=== PATIENT | female | born 1930 | race Caucasian/White ===

== ENCOUNTER → 2016-10-21 | Outpatient (CLI) | payer MEDICARE, OTHER ==
[~2016-10-21] MED LIST: ASPI81 PO; LEVO.05 PO; LIVA2TAB PO; MACR100C PO; VITAMIN
[2016-10-21 09:17] LABS: HEMATOCRIT 37.4 % (35.0-46.0); MEAN CELL VOLUME 86.6 FL (80.0-100.0); MEAN CORPUSCULAR HEMOGLOBIN 29.5 PG (27.0-34.0); PLATELET COUNT 207 TH/MM3 (150-450); RED BLOOD COUNT 4.32 MIL/MM3 (4.00-5.30); RED CELL DISTRIBUTION WIDTH 13.7 % (11.6-17.2); REVIEW FLAG FINAL
[2016-10-21 09:34] LABS: BICARBONATE 27.7 MEQ/L (21.0-32.0); HDL CHOLESTEROL 71.5 MG/DL (40.0-60.0); POTASSIUM 4.2 MEQ/L (3.5-5.1)
== END ==
LOC: CLAB 08:44
PROVIDERS: ATTEND General Practice
DX: E78.00 Pure hypercholesterolemia, unspecified (principal); N64.9 Disorder of breast, unspecified; Z79.899 Other long term (current) drug therapy
CPT/HCPCS: 36415; 80048; 80061; 85027

== ENCOUNTER → 2016-12-16 | Outpatient (CLI) | payer MEDICARE, OTHER ==
[2016-12-16 13:40] LABS: BLOOD, URINE NEG (NEG); COMMENT (UR) CULT NOT INDICATED; CULTURE IF INDICATED CULT NOT INDICATED; GLUCOSE,URINE NEG (NEG); KETONE, URINE 10 mg/dL (NEG); MUCUS URINE FEW /lpf (OCC); NITRITE,URINE NEG (NEG); SQUAMOUS EPITHELIAL CELL URINE 1 /hpf (0-5); TRANSITIONAL EPI CELLS, URINE <1 /hpf; URINE COLOR YELLOW (YELLW/STRAW)
== END ==
LOC: CLAB 12:54
PROVIDERS: ATTEND General Practice
DX: R35.0 Frequency of micturition (principal)
CPT/HCPCS: 81001

== ENCOUNTER → 2017-02-15 | Outpatient (CLI) | payer MEDICARE, OTHER ==
[2017-02-15 09:11] LABS: ANION GAP 7 MEQ/L (5-15); AST (GOT) 16 U/L (15-37); BICARBONATE 28.2 MEQ/L (21.0-32.0); BLOOD UREA NITROGEN 14 MG/DL (7-18); CHLORIDE 103 MEQ/L (98-107); GLOMERULAR FILTRATION RATE 71 ML/MIN (>89); GLUCOSE,FASTING 89 MG/DL (74-99); SODIUM (NA) 138 MEQ/L (136-145)
[2017-02-15 09:12] LABS: ALT (GPT) 21 U/L (10-53)
[2017-02-15 09:21] LABS: ALKALINE PHOSPHATASE 97 U/L (45-117); FREE T4 1.07 NG/DL (0.76-1.46); HDL CHOLESTEROL 68.4 MG/DL (40.0-60.0); LDL CHOLESTEROL 88 MG/DL (0-99); TOTAL BILIRUBIN ADULT 0.7 MG/DL (0.2-1.0)
[2017-02-15 09:24] LABS: BLOOD, URINE NEG (NEG); GLUCOSE,URINE NEG (NEG); KETONE, URINE NEG (NEG); NITRITE,URINE NEG (NEG); URINE COLOR YELLOW (YELLW/STRAW)
[2017-02-15 10:19] LABS: BACTERIA, URINE MANY /hpf; RBC, URINE 0-3 /hpf (0-3)
[2017-02-15 10:20] LABS: COMMENT (UR) CULTURE INDICATED; CULTURE IF INDICATED CULTURE INDICATED
[2017-02-15 11:58] LABS: MICRO ALBUMIN RANDOM URINE RAW 18.6 MG/L (0.0-30.0)
== END ==
LOC: CLAB 08:08
PROVIDERS: ATTEND General Practice
DX: E03.9 Hypothyroidism, unspecified (principal); E78.00 Pure hypercholesterolemia, unspecified; N30.00 Acute cystitis without hematuria; E55.9 Vitamin D deficiency, unspecified; Z79.899 Other long term (current) drug therapy
CPT/HCPCS: 36415; 80053; 80061; 81001; 82043; 82306; 84439; 84443; 87077; 87086

== ENCOUNTER → 2017-08-02 | Outpatient (CLI) | payer MEDICARE, OTHER ==
[~2017-08-02] MED LIST changes: +ASPI81CH6 CHEW; +DIPH2.5T14 PO; +KLORCONEF PO; +LEVO50TA4 PO
[2017-08-02 12:36] LABS: BACTERIA, URINE FEW /hpf; BLOOD, URINE NEG (NEG); COMMENT (UR) CULTURE INDICATED; CULTURE IF INDICATED CULTURE INDICATED; GLUCOSE,URINE NEG (NEG); KETONE, URINE NEG (NEG); MUCUS URINE FEW /lpf (OCC); NITRITE,URINE NEG (NEG); URINE COLOR LIGHT-YELLOW (YELLW/STRAW)
== END ==
LOC: CLAB 11:10
PROVIDERS: ATTEND General Practice
DX: R35.0 Frequency of micturition (principal); N39.0 Urinary tract infection, site not specified; B95.2 Enterococcus as the cause of diseases classified elsewhere
CPT/HCPCS: 81001; 87077; 87086; 87186

== ENCOUNTER 2017-08-09 16:47 | Emergency (ER) | payer MEDICARE, OTHER ==
[~2017-08-09 16:47] MED LIST changes: -ASPI81CH6 CHEW; -DIPH2.5T14 PO; -KLORCONEF PO; -LEVO50TA4 PO
[2017-08-09 16:49] VITALS: BP 200/94; PULSE 88; RESP 12; TEMP 97.8; O2SAT 99
--- NOTE | 2017-08-09 17:44 | RADRPT ---
EXAM DATE/TIME: 08/09/2017 17:30 [place] COMPARISON: No previous studies available for comparison. INDICATIONS : Weakness. Urinary tract infection, diarhhea for 2 weeks. MEDICAL HISTORY : Cardiovascular disease. Cerebrovascular disease. SURGICAL HISTORY : Coronary artery stent. ENCOUNTER: Initial ACUITY: 2 weeks PAIN SCORE: 0/10 LOCATION: Bilateral chest FINDINGS: Moderate hyperinflation with calcified nodes. Negative for infiltrate or failure. Osteopenia. CONCLUSION: Hyperinflation, negative for infiltrate or failure. Spencer Burton MD FACR on August 09, 2017 at 17:41 Board Certified Radiologist. This report was verified electronically.
[2017-08-09 18:10] VITALS: BP 202/97; PULSE 86; RESP 18; O2SAT 96
[2017-08-09] MEDS ORDERED: DIPH2.5T14 PO (18:14)
[2017-08-09] MEDS ORDERED: LEVO50TA4 PO (18:14)
[2017-08-09] MEDS ORDERED: LIVA2TAB PO (18:14)
[2017-08-09] MEDS ORDERED: ASPI81CH6 CHEW (18:14)
--- NOTE | 2017-08-09 18:23 | PD ---
HPI Chief Complaint: GI Complaint Time Seen by Provider: 17:56 Travel History International Travel<30 days: No Contact w/Intl Traveler<30days: No Traveled to known affect area: No History of Present Illness HPI This is an 87-year-old female with a history coronary artery disease, hypothyroidism, hyperlipidemia, who presents today with complaints of weakness and diarrhea and burning with urination. The patient has had UTI symptoms now for over a week. She called her primary care physician who called in Cipro 250 mg twice daily 5 days. She took her last tablet today. She reports that she still has dysuria. She also reports watery stools 4 days. She reports that she's had between one and 3 bowel movements a day that she reports is pure water. There is no reported fevers, chills. She was given a prescription for Flagyl that she's not been able to tolerate. Daughter is at the bedside is concerned that she may be dehydrated. PFSH Past Medical History Hx Anticoagulant Therapy: Yes (ASA) Autoimmune Disease: No Cancer: No Cardiovascular Problems: Yes (STENT) Chemotherapy: No Cerebrovascular Accident: Yes (2009) Coronary Artery Disease: Yes (AORTIC STENOSIS) Diabetes: No Diminished Hearing: Yes (HEARING AIDS, BILATERAL) Endocrine: No Genitourinary: No Immune Disorder: No Musculoskeletal: No Psychiatric: No Reproductive: No Respiratory: No Immunizations Current: No Myocardial Infarction: Yes (2009) Radiation Therapy: No Sickle Cell Disease: No Thyroid Disease: Yes Menopausal: Yes Past Surgical History AICD: No Arteriovenous Shunt: No Cardiac Surgery: Yes (cardiac stents) Coronary Stent: Yes Insulin Pump: No Joint Replacement: No Pacemaker: No Social History Alcohol Use: No Tobacco Use: No Substance Use: No Allergies-Medications (Allergen,Severity, Reaction): Coded Allergies: penicillin G (Unverified Allergy, Severe, 08/09/17) metronidazole (Unverified Allergy, Mild, 08/09/17) Reported Meds & Prescriptions Reported Meds & Active Scripts Active Reported Aspirin Low Dose (Aspirin) 81 Mg Chew 81 Mg CHEW DAILY Diphenoxylate-Atropine 2.5-0.025 Mg Tab 2 Tab PO Q6H PRN Livalo (Pitavastatin) 2 Mg Tab 2 Mg PO DAILY Levothyroxine (Levothyroxine Sodium) 50 Mcg Tab 50 Mcg PO DAILY Review of Systems Except as stated in HPI: all other systems reviewed are Neg General / Constitutional: No: Fever HENT: Positive: Lightheadedness, No: Headaches, Neck Pain Cardiovascular: No: Chest Pain or Discomfort, Palpitations Respiratory: No: Cough, Shortness of Breath Gastrointestinal: Positive: Diarrhea, No: Nausea, Vomiting, Abdominal Pain Genitourinary: Positive: Frequency, Dysuria Musculoskeletal: Positive: Weakness (generalized), No: Pain Neurologic: Positive: Weakness (generalized), No: Headache Physical Exam Narrative GENERAL: Developed well-nourished female in no acute respiratory distress. SKIN: Focused skin assessment warm/dry. HEAD: Atraumatic. Normocephalic. EYES: Pupils equal and round. No scleral icterus. No injection or drainage. ENT: No nasal bleeding or discharge. Mucous membranes pink and dry. NECK: Trachea midline. Supple. CARDIOVASCULAR: Regular rate and rhythm. 3/6 systolic murmur heard right sternal border. RESPIRATORY: No accessory muscle use. Clear to auscultation. Breath sounds equal bilaterally. GASTROINTESTINAL: Abdomen soft, non-tender, nondistended. MUSCULOSKELETAL: No obvious deformities. No clubbing. No cyanosis. No edema. NEUROLOGICAL: Awake and alert. No obvious cranial nerve deficits. Motor grossly within normal limits. Normal speech. Data Data Last Documented VS Vital Signs Date Time Temp Pulse Resp B/P (MAP) Pulse Ox O2 Delivery O2 Flow Rate FiO2 08/09/17 18:10 86 18 202/97 (132) 96 08/09/17 16:49 97.8 Orders Orders Electrocardiogram (08/09/17 17:10) Basic Metabolic Panel (Bmp) (08/09/17 17:10) Complete Blood Count With Diff (08/09/17 17:10) Magnesium (Mg) (08/09/17 17:10) Act Partial Throm Time (Ptt) (08/09/17 17:10) Prothrombin Time / Inr (Pt) (08/09/17 17:10) Urinalysis - C+S If Indicated (08/09/17 17:10) Chest, Pa & Lat (08/09/17 17:10) Sodium Chlor 0.9% 1000 Ml Inj (Ns 1000 M (08/09/17 19:45) Ondansetron Inj (Zofran Inj) (08/09/17 19:49) Potassium Chloride (Kcl) (08/09/17 20:00) Labs Laboratory Tests Test 08/09/17 18:14 08/09/17 18:36 White Blood Count 9.5 TH/MM3 Red Blood Count 4.11 MIL/MM3 Hemoglobin 12.3 GM/DL Hematocrit 36.1 % Mean Corpuscular Volume 87.8 FL Mean Corpuscular Hemoglobin 30.0 PG Mean Corpuscular Hemoglobin Concent 34.2 % Red Cell Distribution Width 13.7 % Platelet Count 267 TH/MM3 Mean Platelet Volume 9.3 FL Neutrophils (%) (Auto) 69.8 % Lymphocytes (%) (Auto) 18.8 % Monocytes (%) (Auto) 9.9 % Eosinophils (%) (Auto) 0.4 % Basophils (%) (Auto) 1.1 % Neutrophils # (Auto) 6.6 TH/MM3 Lymphocytes # (Auto) 1.8 TH/MM3 Monocytes # (Auto) 0.9 TH/MM3 Eosinophils # (Auto) 0.0 TH/MM3 Basophils # (Auto) 0.1 TH/MM3 CBC Comment DIFF FINAL Differential Comment Prothrombin Time 10.6 SEC Prothromb Time International Ratio 1.0 RATIO Activated Partial Thromboplast Time 29.6 SEC Blood Urea Nitrogen 8 MG/DL Creatinine 0.68 MG/DL Random Glucose 101 MG/DL Calcium Level 9.0 MG/DL Magnesium Level 1.8 MG/DL Sodium Level 134 MEQ/L Potassium Level 3.0 MEQ/L Chloride Level 102 MEQ/L Carbon Dioxide Level 27.4 MEQ/L Anion Gap 5 MEQ/L Estimat Glomerular Filtration Rate 81 ML/MIN Urine Color LIGHT-YELLOW Urine Turbidity CLEAR Urine pH 6.5 Urine Specific [place] 1.005 Urine Protein NEG mg/dL Urine Glucose (UA) NEG mg/dL Urine Ketones NEG mg/dL Urine Occult Blood NEG Urine Nitrite NEG Urine Bilirubin NEG Urine Urobilinogen LESS THAN 2.0 MG/DL Urine Leukocyte Esterase NEG Urine WBC LESS THAN 1 /hpf Urine Squamous Epithelial Cells <1 /hpf Microscopic Urinalysis Comment CULT NOT INDICATED MDM Medical Decision Making Medical Screen Exam Complete: Yes Emergency Medical Condition: Yes Differential Diagnosis Persistent UTI versus dehydration versus C. difficile Narrative Course 87 year old female presents with dysuria, weakness and diarrhea. The patient had a recent UTI for which she was treated with Cipro. The patient states that she's also had diarrhea. Her primary care doctor called and Flagyl however she' s not been taking it because it makes her sick. Labs show resolution of the urinary tract infection. Patient's electrolytes also appear within normal limits. Her blood pressure is high with a systolic over 200. She's been given 1 L of IVD fluid. She'll be signed out to Dr. Jackie Castaneda, physician replacing me at change of shift. She will recheck her blood pressure after the IV infusion. If her blood pressure is still high, she may need to have IVD blood pressure control. Diagnosis Primary Impression: Generalized weakness Additional Impressions: Dysuria Diarrhea Hypertension Itz Jc MD Aug 09, 2017 18:23
[2017-08-09 18:49] LABS: BLOOD, URINE NEG (NEG); COMMENT (UR) CULT NOT INDICATED; CULTURE IF INDICATED CULT NOT INDICATED; GLUCOSE,URINE NEG (NEG); KETONE, URINE NEG (NEG); NITRITE,URINE NEG (NEG); PH, URINE 6.5 (5.0-8.5); SQUAMOUS EPITHELIAL CELL URINE <1 /hpf (0-5); URINE COLOR LIGHT-YELLOW (YELLW/STRAW)
[2017-08-09 18:49] LABS: AUTOMATED NEUTROPHIL # 6.6 TH/MM3 (1.8-7.7); BASOPHIL # 0.1 TH/MM3 (0-0.2); BASOPHIL % 1.1 % (0.0-2.0); EOSINOPHIL % 0.4 % (0.0-4.0); HEMATOCRIT 36.1 % (35.0-46.0); HEMO FLAGS DIFF FINAL; LYMPH % 18.8 % (9.0-44.0); LYMPHOCYTE # 1.8 TH/MM3 (1.0-4.8); MEAN CELL VOLUME 87.8 FL (80.0-100.0); MEAN CORPUSCULAR HGB CONC 34.2 % (32.0-36.0); MONO % 9.9 % (0.0-8.0); NEUT % 69.8 % (16.0-70.0); PLATELET COUNT 267 TH/MM3 (150-450); RED BLOOD COUNT 4.11 MIL/MM3 (4.00-5.30); RED CELL DISTRIBUTION WIDTH 13.7 % (11.6-17.2); WHITE BLOOD COUNT 9.5 TH/MM3 (4.0-11.0)
[2017-08-09 18:58] LABS: APTT (PATIENT) 29.6 SEC (24.3-30.1); PROTHROMBIN TIME - PATIENT 10.6 SEC (9.8-11.6)
[2017-08-09 19:08] LABS: BICARBONATE 27.4 MEQ/L (21.0-32.0); MAGNESIUM 1.8 MG/DL (1.5-2.5)
[2017-08-09] MEDS ORDERED: SODIUM CHLOR 0.9% 1000 ML INJ 1,000 ML IV ONE (19:45)
[2017-08-09] MEDS ORDERED: ONDANSETRON HCL 4 MG/2 ML VIAL ONE (19:49)
[2017-08-09] MEDS ORDERED: POTASSIUM CHLORIDE 20 MEQ CONTROLLED RELEASE TAB PO ONE (20:00)
[2017-08-09 20:04] VITALS: BP 190/90; PULSE 76; RESP 16; O2SAT 98
[2017-08-09] MEDS ORDERED: KLORCONEF PO (20:25)
--- NOTE | 2017-08-09 20:25 | PD ---
Physical Exam Narrative General: The patient is a well-developed well-nourished female in no acute distress. Head and Neck exam: Head is normocephalic atraumatic. Nose: Midline septum with pink mucous membranes Mouth: Dentition unremarkable. Moist mucus membranes. Neck: No palpable lymphadenopathy. No nuchal rigidity. Cardiovascular: Regular rate and rhythm Lungs: Clear to auscultation bilaterally. No wheezes, rhonchi, or rales. Abdomen: Soft, without tenderness to palpation in all 4 quadrants of the abdomen. No guarding, rebound, or rigidity. Normal bowel sounds are audible. No tenderness on palpation of McBurney's point. Extremities: No clubbing, cyanosis, or edema. Neurologic Exam: Grossly nonfocal. Skin Exam: No rash noted. Intact skin that is warm and dry. Data Data Last Documented VS Vital Signs Date Time Temp Pulse Resp B/P (MAP) Pulse Ox O2 Delivery O2 Flow Rate FiO2 08/09/17 20:04 76 16 190/90 (123) 98 Room Air 08/09/17 16:49 97.8 Orders Orders Electrocardiogram (08/09/17 17:10) Basic Metabolic Panel (Bmp) (08/09/17 17:10) Complete Blood Count With Diff (08/09/17 17:10) Magnesium (Mg) (08/09/17 17:10) Act Partial Throm Time (Ptt) (08/09/17 17:10) Prothrombin Time / Inr (Pt) (08/09/17 17:10) Urinalysis - C+S If Indicated (08/09/17 17:10) Chest, Pa & Lat (08/09/17 17:10) Sodium Chlor 0.9% 1000 Ml Inj (Ns 1000 M (08/09/17 19:45) Ondansetron Inj (Zofran Inj) (08/09/17 19:49) Potassium Chloride (Kcl) (08/09/17 20:00) Labs Laboratory Tests Test 08/09/17 18:14 08/09/17 18:36 White Blood Count 9.5 TH/MM3 Red Blood Count 4.11 MIL/MM3 Hemoglobin 12.3 GM/DL Hematocrit 36.1 % Mean Corpuscular Volume 87.8 FL Mean Corpuscular Hemoglobin 30.0 PG Mean Corpuscular Hemoglobin Concent 34.2 % Red Cell Distribution Width 13.7 % Platelet Count 267 TH/MM3 Mean Platelet Volume 9.3 FL Neutrophils (%) (Auto) 69.8 % Lymphocytes (%) (Auto) 18.8 % Monocytes (%) (Auto) 9.9 % Eosinophils (%) (Auto) 0.4 % Basophils (%) (Auto) 1.1 % Neutrophils # (Auto) 6.6 TH/MM3 Lymphocytes # (Auto) 1.8 TH/MM3 Monocytes # (Auto) 0.9 TH/MM3 Eosinophils # (Auto) 0.0 TH/MM3 Basophils # (Auto) 0.1 TH/MM3 CBC Comment DIFF FINAL Differential Comment Prothrombin Time 10.6 SEC Prothromb Time International Ratio 1.0 RATIO Activated Partial Thromboplast Time 29.6 SEC Blood Urea Nitrogen 8 MG/DL Creatinine 0.68 MG/DL Random Glucose 101 MG/DL Calcium Level 9.0 MG/DL Magnesium Level 1.8 MG/DL Sodium Level 134 MEQ/L Potassium Level 3.0 MEQ/L Chloride Level 102 MEQ/L Carbon Dioxide Level 27.4 MEQ/L Anion Gap 5 MEQ/L Estimat Glomerular Filtration Rate 81 ML/MIN Urine Color LIGHT-YELLOW Urine Turbidity CLEAR Urine pH 6.5 Urine Specific [place] 1.005 Urine Protein NEG mg/dL Urine Glucose (UA) NEG mg/dL Urine Ketones NEG mg/dL Urine Occult Blood NEG Urine Nitrite NEG Urine Bilirubin NEG Urine Urobilinogen LESS THAN 2.0 MG/DL Urine Leukocyte Esterase NEG Urine WBC LESS THAN 1 /hpf Urine Squamous Epithelial Cells <1 /hpf Microscopic Urinalysis Comment CULT NOT INDICATED MDM Medical Record Reviewed: Yes Supervised Visit with HERMAN: No Narrative Course During the course of the patients emergency department visit, the patients history, examination, and differential diagnosis were reviewed with the patient. The patient was placed on a manager monitoring with oximetry and frequent blood pressure monitoring. The patient had IV access obtained and blood work sent for analysis. The patient was initially evaluated by Dr. Jc. Please see his complete history and physical. He requested that I reevaluate the patient after she received IV fluids for mild dehydration and diarrhea. The patient was initially provided normal saline 1 L IV fluid bolus. The patients laboratory studies were reviewed and remarkable for a white count of 9.5, hemoglobin 12.3, platelets 267 with monocytes 9.9. Basic metabolic profile is remarkable for a sodium of 134, potassium 3.0 which was supplemented orally by me with 40 mEq of potassium chloride, GFR of 81, magnesium 1.8, PT 10.6, PTT 29.6, urinalysis within normal limits. Radiology studies were reviewed and remarkable for a chest x-ray that shows hyperinflation, no evidence of heart failure or infiltrate. The patient presents to the emergency department with a recent history of urinary tract infection status post treatment with recurrence of diarrhea. The patient reports that she's had intermittent bouts of diarrhea over the last year. She reports that she's never had a colonoscopy. She reports that she is interested in seeing a GI doctor for further evaluation. The patient additionally reports that she has a history of white coat syndrome. The patient 's blood pressure is noted to be elevated on arrival. The patient's daughter reports that she has never been on blood pressure medication as she has not required this. When she checks her blood pressure at home aren't a pharmacy her blood pressure is always normal. The patient will be given the name of the outpatient GI doctor for follow-up. The patient was given a short course of a potassium supplement to replace lost potassium. The patient is resting comfortably and feels better, is alert and in no distress. The patients results and examination findings were discussed with the patient. The repeat examination is unremarkable and benign. The history, exam, diagnostic testing, and current condition do not suggest any significant pathology to warrant further testing, continued ED treatment, admission, or surgical evaluation at this point. The vital signs have been stable. The patient does not have uncontrollable pain, intractable vomiting, or other significant symptoms. The patient's condition is stable and appropriate for discharge. The patient will pursue further outpatient evaluation with a primary care physician or other designated or consulting physician as indicated in the discharge instructions. The patient expressed understanding and was agreeable with this plan. Diagnosis Primary Impression: Generalized weakness Additional Impressions: Diarrhea Dysuria Hypertension Hypokalemia Referrals: Jackelin Gonzalez MD 1 week Primary Care Physician 3 days Patient Instructions: Acute Diarrhea (ED), General Instructions, Hypertension ( ED), Hypokalemia (ED) Scripts Potassium Bicarbonate Effervescent (K-Vescent) 25 Meq Tab 25 MEQ PO BID for Electrolyte Replacement for 3 Days, #6 TAB 0 Refills Prov: Oralia Castaneda MD 08/09/17 Disposition: 01 DISCHARGE HOME Condition: Stable Oralia Castaneda MD Aug 09, 2017 20:25
--- NOTE | 2017-08-10 17:46 | EKG ---
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
== END 2017-08-09 21:45 | disposition home or self-care (01) ==
LOC: NEPE 16:47
DX: R53.1 Weakness (principal); R19.7 Diarrhea, unspecified; R30.0 Dysuria; E86.0 Dehydration; E87.6 Hypokalemia; I10 Essential (primary) hypertension; E03.9 Hypothyroidism, unspecified; E78.5 Hyperlipidemia, unspecified; Z87.440 Personal history of urinary (tract) infections
CPT/HCPCS: 71020; 80048; 81001; 83735; 85025; 85610; 85730; 93005; 96360; 99285; J2405; J7030

== ENCOUNTER → 2017-08-17 | Outpatient (CLI) | payer MEDICARE, OTHER ==
[~2017-08-17] MED LIST changes: -ASPI81 PO; +ASPI81CH6 CHEW; +DIPH2.5T14 PO; +KLORCONEF PO; -LEVO.05 PO; +LEVO50TA4 PO; -MACR100C PO; -VITAMIN
[2017-08-17 10:05] LABS: BLOOD, URINE NEG (NEG); COMMENT (UR) CULT NOT INDICATED; CULTURE IF INDICATED CULT NOT INDICATED; GLUCOSE,URINE NEG (NEG); KETONE, URINE NEG (NEG); MUCUS URINE FEW /lpf (OCC); NITRITE,URINE NEG (NEG); PH, URINE 7.5 (5.0-8.5); SQUAMOUS EPITHELIAL CELL URINE 1 /hpf (0-5); URINE COLOR LIGHT-YELLOW (YELLW/STRAW)
== END ==
LOC: CLAB 08:44
PROVIDERS: ATTEND General Practice
DX: R35.0 Frequency of micturition (principal)
CPT/HCPCS: 81001

== ENCOUNTER → 2017-08-25 | Outpatient (CLI) | payer MEDICARE, OTHER ==
[2017-08-25 10:38] LABS: ANION GAP 8 MEQ/L (5-15); AST (GOT) 20 U/L (15-37); BICARBONATE 25.7 MEQ/L (21.0-32.0); BLOOD UREA NITROGEN 12 MG/DL (7-18); CHLORIDE 101 MEQ/L (98-107); GLOMERULAR FILTRATION RATE 83 ML/MIN (>89); GLUCOSE,FASTING 103 MG/DL (74-99); MAGNESIUM 2.1 MG/DL (1.5-2.5); POTASSIUM 4.1 MEQ/L (3.5-5.1); SODIUM (NA) 135 MEQ/L (136-145)
[2017-08-25 10:39] LABS: ALT (GPT) 22 U/L (10-53)
[2017-08-25 10:47] LABS: ALKALINE PHOSPHATASE 98 U/L (45-117); CREATINE KINASE 114 U/L (26-192); FREE T4 1.11 NG/DL (0.76-1.46); HDL CHOLESTEROL 81.4 MG/DL (40.0-60.0); LDL CHOLESTEROL 102 MG/DL (0-99); TOTAL BILIRUBIN ADULT 0.6 MG/DL (0.2-1.0)
== END ==
LOC: CLAB 09:09
PROVIDERS: ATTEND General Practice
DX: E03.9 Hypothyroidism, unspecified (principal); E78.2 Mixed hyperlipidemia; Z79.899 Other long term (current) drug therapy
CPT/HCPCS: 36415; 80053; 80061; 82550; 83735; 84439; 84443

== ENCOUNTER → 2018-01-24 | Outpatient (CLI) | payer MEDICARE, OTHER ==
[2018-01-24 07:59] LABS: ALBUMIN 3.4 GM/DL (3.4-5.0); DIRECT BILIRUBIN ADULT 0.1 MG/DL (0.0-0.2)
[2018-01-24 08:02] LABS: CHOLESTEROL/ HDL RATIO 2.47 RATIO; HDL CHOLESTEROL 64.7 MG/DL (40.0-60.0); INDIRECT BILIRUBIN 0.5 MG/DL (0.0-0.8); TOTAL BILIRUBIN ADULT 0.6 MG/DL (0.2-1.0); TOTAL PROTEIN 7.2 GM/DL (6.4-8.2)
== END ==
LOC: CLAB 07:13
PROVIDERS: ATTEND General Practice
DX: E78.2 Mixed hyperlipidemia (principal); I10 Essential (primary) hypertension; Z79.899 Other long term (current) drug therapy
CPT/HCPCS: 36415; 80061; 80076